=== PATIENT | female | born 1960 | race Caucasian/White ===

== ENCOUNTER 2020-02-14 10:50 | Outpatient (REF) | payer OTHER, SELFPAY ==
--- NOTE | 2020-02-14 10:53 | CT_ITS ---
EXAMINATION: CT FACIAL BONES WITHOUT CONTRAST CLINICAL INFORMATION: Fall on face. Question orbital fracture. COMPARISON: None TECHNIQUE: Multidetector volumetric imaging of the facial bones performed without IV contrast. Coronal and sagittal reformatted images are obtained and reviewed. This CT examination was performed using dose optimization techniques as appropriate, variously including the following: *Automated exposure control *Adjustment of mA and/or kV according to patient size (this includes techniques or standardized protocols for targeted exams where dose is matched to indication/reason for exam; i.e. extremities or head) *Use of iterative reconstruction technique DLP: 92 mGy-cm FINDINGS: There is mildly depressed fracture of the tip of the nasal bone. No additional maxillofacial fracture.. The pterygoid plates are intact. The zygomatic arches are intact. The lamina papyracea are intact. The orbital rims are intact. The paranasal sinuses are well-aerated. No air-fluid levels are seen. There is rightward deviation of the nasal septum with a prominent spur. The ostiomeatal complexes are clear. The lamina papyracea are intact. The ethmoid roofs are symmetric. The carotid canals are normally covered by bone. No maxillary periapical disease is seen. The mastoid air cells and visualized middle ear cavities are well-aerated. The orbits are normal. Degenerative changes noted at the left temporomandibular joint.. The imaged portions of the brain demonstrate no acute abnormality. CT/CT facial bones wo con IMPRESSION: Mildly depressed fracture at the tip of the nasal bone. No additional maxillofacial fractures are seen.
== END 2020-02-14 10:51 | disposition home or self-care (01) ==
LOC: HO.CT 10:50
PROVIDERS: Visit Provider Family Medicine
DX: M95.0 Acquired deformity of nose (principal)
CPT/HCPCS: 70486

== ENCOUNTER 2021-05-15 09:51 | Emergency (ER) | payer OTHER, SELFPAY ==
--- NOTE | ~2021-05-15 | XR_ITS ---
EXAMINATION: XR BILATERAL HIPS WITH AP PELVIS CLINICAL INFORMATION: Fall with bilateral hip and coccyx pain COMPARISON: None TECHNIQUE: AP pelvis and 2 views of each hip FINDINGS: AP film of the pelvis does not demonstrate any evidence of acute fracture or diastases. Sacroiliac joints appear unremarkable. 2 views of the right hip do not demonstrate any evidence of acute fracture or dislocation. No destructive lytic or sclerotic lesions identified. Hip joint space maintained. 2 views of the left hip do not demonstrate any evidence of acute fracture or dislocation. Hip joint spaces maintained. No lytic or sclerotic lesions identified. XR/XR hip BI w PEL1V IMPRESSION: No significant bony abnormality of the AP pelvis or bilateral hips identified.
--- NOTE | ~2021-05-15 | CT_ITS ---
EXAMINATION: CT PELVIS WITHOUT CONTRAST CLINICAL INFORMATION: Reason for Exam fall, bilat hip and coccyx pain . COMPARISON: No pertinent prior studies are available for comparison. TECHNIQUE: Multidetector volumetric imaging was performed from the iliac crests through the pubic symphysis following the administration of: Oral contrast: None Intravenous contrast: None Sagittal and coronal reformatted images were obtained on the technologist workstation. Total exam dose-length product 399 mGy-cm FINDINGS: PELVIC VISCERA: Unremarkable. No free fluid collection identified. No hematoma is seen. No paraspinal muscle abnormality noted. OSSEOUS STRUCTURES: There are bilateral L5 pars defects with grade 1 spondylolisthesis L5 on S1. There is marked narrowing of the L5-S1 disc space with articular irregularity and with posterior disc bulge present. No acute pelvic fracture is appreciated. There is some narrowing of the posterior hip joints bilaterally. CT/CT sacrum IMPRESSION: Bilateral L5 pars defects with grade 1 spondylolisthesis. No definite acute pelvic fracture identified.
[2021-05-15 09:54] VITALS: BP 134/80; PULSE 77; RESP 16; TEMP 36.6; O2SAT 99; BMI 26.4
[2021-05-15] MEDS: oxyCODONE HCl Immed Release 5 MG TABLET PO (11:13)
--- NOTE | 2021-05-15 12:10 | ED.FALL ---
HPI - Fall General Chief Complaint: Fall Stated Complaint: fall Time Seen by Provider: 05/15/21 10:02 Source: patient Mode of arrival: ambulatory Limitations: no limitations History of Present Illness HPI Narrative: 61-year-old female presents for a slip on ice yesterday. Patient has a past medical history of degenerative disc disease and thyroid surgery. She is postmenopausal. Yesterday she lift the liver is cycling been and slipped on ice and fell on her tailbone. Now she has tailbone pain. It hurts to bend over, it hurts to squat. She did not hit her head, no loss of consciousness. Patient is not on blood thinners. Related Data Previous Rx's Medication Instructions Recorded oxycodone 5 mg tablet 5 mg PO Q6H PRN #14 tab 05/15/21 Allergies Allergy/AdvReac Type Severity Reaction Status Date / Time cefuroxime [From CEFTIN] Allergy Unknown HIVES Verified 05/15/21 09:54 Review of Systems Constitutional: Constitutional: Denies body ache(s), Denies chills, Denies fatigue, Denies fever(s), Denies headache(s), Denies malaise and Denies weakness Eyes: Eyes: Denies diplopia ENT: Denies vertigo, Denies dizziness, Denies otalgia, Denies headache(s), Denies mouth pain, Denies post nasal drip, Denies sinus pain, Denies sinus pressure, Denies sore throat and Denies throat swelling Cardiovascular: Cardiovascular: Denies chest pain, Denies syncope, Denies leg edema, Denies lightheadedness, Denies Loss of Consciousness, Denies palpitations and Denies dyspnea Respiratory: Respiratory: Denies chest congestion, Denies cough and Denies dyspnea Gastrointestinal: Gastrointestinal: Denies abdominal pain, Denies hematochezia, Denies constipation, Denies diarrhea and Denies vomiting Musculoskeletal: Comments: Pain in tailbone and hips Neurologic: Denies confusion, Denies vertigo, Denies dizziness, Denies syncope, Denies headache(s) and Denies weakness Psychiatric: Psychiatric: Denies anxiety, Denies confusion and Denies depression Endocrine: Endocrine: Denies fatigue and Denies palpitations Allergic/Immunologic: Allergic/Immunologic: Denies throat swelling [facility] Past Medical History [facility] Narrative: DDD Thyroid surgery Medical History No known health problems Social History Social History Advance Directives: No Advance Directives Information Provided: No Physical Exam Vital Signs: Vital Signs: Last Vital Signs Temp 98.2 F 05/15/21 14:09 Pulse 71 05/15/21 14:09 Resp 17 05/15/21 14:09 BP 121/69 05/15/21 14:09 Pulse Ox 99 05/15/21 14:09 BMI result Body Mass Index 26.4 Const: General: No confusion Nutritional Appearance: well nourished Orientation/consciousness: No confusion Limitations: no limitations HENMT: Head: Yes normal to inspection, Yes normocephalic and Yes atraumatic Ears: hearing grossly normal bilaterally, external ears normal, TM's normal bilaterally and EAC's normal General nose exam: Normal external nose present Face and sinus: Yes normal facial exam and Yes sinuses nontender Mouth: Normal oral and palatal mucosa present Throat: Yes posterior oropharynx normal Eyes: Conjunctivae: conjunctivae normal Pupils: Equal, round and reactive pupils present EOM: EOMs intact bilaterally Neck: Neck: Yes full ROM, Yes no lymphadenopathy and Yes supple Resp: Effort & Inspection: normal respiratory effort and able to speak in complete sentences Auscultation: clear to auscultation bilaterally, no crackles, no rales, no rhonchi and no wheezes Cardio: Rate: regular rate Rhythm: regular rhythm Heart sounds: S1 normal heart sound present and S2 normal heart sound present GI: Inspection: Yes normal to inspection Palpation (GI): Soft to palpation, nontender, no guarding and not rigid Percussion: Yes normal to percussion Auscultation: normal bowel sounds : General: Yes no CVA tenderness Back/Spine/Pelvis: Back: no CVA tenderness Cervical Spine: normal cervical lordosis, cervical ROM normal, No Cervical spine tenderness, No step off deformity and No cervical ROM abnormal Thoracic/Lumbar Spine: thoracic and lumbar spine normal to inspection, No thoraco-lumbar ROM limited, No thoraco-lumbar spasm, No thoracic spinal tenderness and No lumbar spinal tenderness Pelvis: Other pelvic findings (tender bilateral hips) Sacrum: no erythema, no swelling and tenderness midline Coccyx: Coccyx tenderness present on direct palpation and Other pelvic findings (tender bilateral hips) Skin: General skin exam: no rashes or lesions noted Neuro: General: No confusion Cranial nerves: Yes Equal, round and reactive pupils present Extrem: General: Yes normal to inspection and Yes full ROM Psych: Appearance: grossly normal Affect: normal affect Attitude: cooperative Thought process: Normal thought process present Course Course Course Narrative: 61-year-old female presents with tailbone pain after slip on ice and fall on her toxic yesterday. No head strike, no loss of consciousness. On exam, patient is tender over bilateral hips, but has vertebral point tenderness in her sacrum and coccyx, no vertebral point tenderness in her cervical, thoracic, or lumbar spine. Patient has good range of motion of her spine. She is able to walk without limping. Intact lower extremity sensation, motor strength, pulses, DTRs. Patient refused pain medication XR shows No significant bony abnormality of the AP pelvis or bilateral hips Patient has been waiting for CT and would like to leave prior to CT results. I will call her with CT results at home is. Will treat pain with oxycodone, Tylenol, ibuprofen. Instructed patient how to alternate Tylenol and ibuprofen. Counseled patient to buy cushion from pharmacy to push in her tailbone. Advised patient to avoid sexual intercourse for 2 weeks. Reevaluation(s) Reevaluation #1: CT shows OSSEOUS STRUCTURES: There are bilateral L5 pars defects with grade 1 spondylolisthesis L5 on S1. There is marked narrowing of the L5-S1 disc space with articular irregularity and with posterior disc bulge present. No acute pelvic fracture is appreciated. There is some narrowing of the posterior hip joints bilaterally. CT/CT sacrum IMPRESSION: Bilateral L5 pars defects with grade 1 spondylolisthesis. No definite acute pelvic fracture identified. Discussed findings with Dr Page, who said most likely this pars defecr is chronic arthritis, not acute. Called [facility], discussed with radiologist, who said pars defects are usually chronic, and this one is sclerotic, does not look acute. No subluxation, the spondylolisthesis is only grade 1, there is no big shift. Called pt, told her no acute pelvic/coccyx/sacral fracture, and to f/u with PCP Discharge Plan Discharge Clinical Impression: Acute coccygeal pain Patient Disposition: Home, Self-Care Additional Instructions: I will call you this evening to discuss your CT results. I have prescribed oxycodone to her pharmacy, take as needed. Please do not operate machinery or drive while you are taking this. This medicine can also make you constipated, please drink plenty of fluids Please alternate Tylenol and ibuprofen for pain. Take 1 or the other every 4 hours. For example, at midnight take 1000 mg of Tylenol, then at 4:00 a.m. take 800 mg ibuprofen, at 8:00 a.m. take 1000 mg of Tylenol, at noon take 800 mg of ibuprofen, at 4:00 p.m. take 1000 mg of Tylenol, at 8:00 p.m. take 800 mg of ibuprofen. Do not exceed 3000 mg of Tylenol in 24 hours. This method is proven to be as effective as an opioid for pain control. Please buy of cushion for your tailbone from the pharmacy and use this to sit on. I do not want you standing or walking excessively. Please refrain from sexual intercourse for the next 2 weeks. Please return to emergency room for any new or concerning symptoms. Prescriptions: New oxycodone 5 mg tablet 5 mg PO Q6H PRN (Reason: pain) Qty: 14 0RF Stand Alone Forms: Work/School Release Interventions: ED Discharge Assessment Last Done: 05/15/21 15:06 Discharge Date/Time: 05/15/21 15:07
[2021-05-15 14:09] VITALS: BP 121/69; PULSE 71; RESP 17; TEMP 36.8; O2SAT 99
== END 2021-05-15 15:07 | disposition home or self-care (01) ==
PROVIDERS: Emergency Provider Emergency Medicine; PCP Family Medicine
DX: M53.3 Sacrococcygeal disorders, not elsewhere classified (principal); Z91.81 History of falling
CPT/HCPCS: 72192; 73521; 99284